=== PATIENT | male | born 1995 | race African-American/Black ===

== ENCOUNTER 2016-09-20 23:07 | Emergency (ER) | payer MEDICAID ==
[~2016-09-20] VITALS: Ht 175.3 cm; Wt 63.0 kg
[2016-09-21] MEDS ORDERED: TETANUS, DIPHTHERIA, PERTUSSIS VAC/PF 0.5ML (>7YR OLD) IM ONE (02:00)
[2016-09-21] MEDS ORDERED: ONDANSETRON 4MG ODT PO ONE (02:15)
[2016-09-21] MEDS ORDERED: HYDROCODONE/ACETAMINOPHEN 5/325MG TABLET PO ONE (02:15)
[2016-09-21] MEDS ORDERED: MORPHINE SULFATE 4 MG/ML CPJ (NOT FOR IM USE) IV STA (03:13)
[2016-09-21] MEDS ORDERED: ONDANSETRON HCL 4MG/2ML VIAL IV STA (03:13)
[2016-09-21] MEDS ORDERED: CEFAZOLIN 1000MG PREMIX 50 ML IV ONE (03:15)
[2016-09-21 07:01] VITALS: BP 124/71
== END 2016-09-21 07:18 | disposition short-term general hospital (02) ==
LOC: ER 23:30
DX: S06.0X0A Concussion without loss of consciousness, initial encounter (principal); S01.411A Laceration without foreign body of right cheek and temporomandibular area, initial encounter; S01.111A Laceration without foreign body of right eyelid and periocular area, initial encounter; V43.52XA Car driver injured in collision with other type car in traffic accident, initial encounter; Y93.89 Activity, other specified; Y92.414 Local residential or business street as the place of occurrence of the external cause
CPT/HCPCS: 70150; 70450; 70486; 90471; 90715; 96365; 96375; 99285; J0690; J2270; J2405; Q0162; Z7610